=== PATIENT | female | born 1990 | race Two or more races ===

== ENCOUNTER 2016-09-02 12:54 | Emergency (ER) | payer OTHER ==
[~2016-09-02] VITALS: Ht 175.3 cm; Wt 81.0 kg
[2016-09-02] MEDS ORDERED: PRED20 PO (14:03)
[2016-09-02] MEDS ORDERED: HYD25 PO (14:03)
[2016-09-02 15:18] LABS: BASOPHILS % (AUTO) 0.1 % (0.0-2.0); EOSINOPHILS % (AUTO) 0.1 % (1.0-6.0); HEMATOCRIT 45.3 % (36-46); HEMOGLOBIN 14.2 g/dL (12.0-16.0); LYMPHOCYTES % (AUTO) 7.2 % (22.0-44.0); MEAN CORPUSCULAR HEMOGLOBIN 26.2 pg (26.0-34.0); MEAN CORPUSCULAR HGB CONC 31.3 G/dL (31.0-37.0); MEAN CORPUSCULAR VOLUME 84 fL (80-100); MONOCYTES # (AUTO) 0.1 K/uL (0.1-1.0); NEUTROPHILS # (AUTO) 13.2 K/uL (1.8-7.7); PLATELET COUNT (AUTO) 269 K/uL (150-450); RED CELL DISTRIBUTION WIDTH 14.8 % (11.5-14.5); WHITE BLOOD COUNT (AUTO) 14.5 K/uL (4.5-11.0)
[2016-09-02 15:22] LABS: NEUTROPHILS % (AUTO) 91.6 % (40.0-70.0)
[2016-09-02 15:27] LABS: ANION GAP 10 mmol/L (8-16); CALCIUM, TOTAL 9.4 mg/dL (8.8-10.5); CARBON DIOXIDE 27 mmol/L (22-29); CHLORIDE 101 mmol/L (98-107); GLOMERULAR FILTR. RATE CALC > 60 mL/min (>60); POTASSIUM 4.1 mmol/L (3.5-5.1); SODIUM SERUM 138 mmol/L (136-145); UREA NITROGEN, BLOOD 9 mg/dL (7-18)
[2016-09-02 15:35] LABS: RBC MORPHOLOGY COMMENT NORMAL RBC MORPH
[2016-09-02 15:40] LABS: ALANINE AMINOTRANSFERASE 23 U/L (12-78); ALBUMIN 3.9 g/dL (3.4-5.0); ASPARTATE AMINOTRANSFERASE 13 U/L (15-37); BILIRUBIN,TOTAL 0.3 mg/dL (0.1-1.0)
[2016-09-02] MEDS ORDERED: DiphenhydrAMINE HCL 25 MG CAPSULE PO ONE (16:30)
[2016-09-02] MEDS ORDERED: MethylPREDNISolone SOD SUCC 125 MG/2 ML VIAL IVP ONE (16:30)
[2016-09-02 17:01] VITALS: BP 121/75
== END 2016-09-02 17:27 | disposition home or self-care (01) ==
LOC: EDSEX 12:56 → EMS 12:56
DX: F32.9 Major depressive disorder, single episode, unspecified (principal); L23.9 Allergic contact dermatitis, unspecified cause
CPT/HCPCS: 36415; 80053; 85025; 96374; 99285; G0480; J2930